=== PATIENT | male | born 1940 | race Hispanic/Latino ===

== ENCOUNTER → 2021-09-11 | Day surgery (SDC) | payer MEDICARE, OTHER ==
[~2021-09-11] MED LIST: ALBUTEROL0.63 MG/3 NEB; ALEVE220 M1 PO; AMLODIPINE BESY10 MG PO; ATROVENT HFA12.9 GM INH; BALANCED SALT SOLN (OPTH) 15 ML BTL IO ONE; BENICAR20 MG PO; BUPIVACAINE HC 0.75% PF 10ML VIAL INJ ONE; CALCIUM PO; CLONIDINE HCL0.1 MG PO; DICLOFENAC SODI50 MG PO; FENTANYL CITRATE/PF 100MCG/2 ML INJ ONE; FLOMAX0.4 MG PO; IRON PO; LIDOCAINE HCL 1% 30ML-PF VIAL ONE; MIDAZOLAM HCL 5 MG/ML VIAL ONE; NAPROSYN500 MG PO; NEOMYCIN/POLYMYXIN/DEX (OPTH) 3.5 GM TUBE ONE; OMEPRAZOLE40 MG PO; POVIDONE IODINE 5% (OPTH) 30 ML BTL ONE; ULTRAM 50MG50 MG PO; VITAMIN D3 PO; VITAMIN D310 MCG PO
[2021-09-11 16:40] VITALS: BP 136/71
== END | disposition home or self-care (01) ==
LOC: OR 11:54
PROVIDERS: ATTEND Ophthalmology
DX: H11.052 Peripheral pterygium, progressive, left eye (principal); D50.9 Iron deficiency anemia, unspecified; E11.65 Type 2 diabetes mellitus with hyperglycemia; E66.01 Morbid (severe) obesity due to excess calories; J44.9 Chronic obstructive pulmonary disease, unspecified; I10 Essential (primary) hypertension; M16.11 Unilateral primary osteoarthritis, right hip; N40.1 Benign prostatic hyperplasia with lower urinary tract symptoms; N32.81 Overactive bladder; K59.01 Slow transit constipation; E55.9 Vitamin D deficiency, unspecified; Z01.812 Encounter for preprocedural laboratory examination; Z20.822 Contact with and (suspected) exposure to COVID-19; Z79.899 Other long term (current) drug therapy; Z68.35 Body mass index [BMI] 35.0-35.9, adult; Z87.891 Personal history of nicotine dependence
CPT/HCPCS: 65426; 88304; U0002; 88305; J2001; J2250; J3010

== ENCOUNTER 2021-10-22 20:51 | Emergency (ER) | payer MEDICARE, OTHER ==
[~2021-10-22] VITALS: Ht 172.7 cm; Wt 111.1 kg
[~2021-10-22 20:51] MED LIST changes: -BALANCED SALT SOLN (OPTH) 15 ML BTL IO ONE; -BUPIVACAINE HC 0.75% PF 10ML VIAL INJ ONE; -FENTANYL CITRATE/PF 100MCG/2 ML INJ ONE; -LIDOCAINE HCL 1% 30ML-PF VIAL ONE; -MIDAZOLAM HCL 5 MG/ML VIAL ONE; -NEOMYCIN/POLYMYXIN/DEX (OPTH) 3.5 GM TUBE ONE; -POVIDONE IODINE 5% (OPTH) 30 ML BTL ONE
[2021-10-22] MEDS ORDERED: BACITRACIN ZINC 0.9GM TP ONE (21:15)
== END 2021-10-22 23:28 | disposition home or self-care (01) ==
LOC: ER 21:05
DX: S51.812A Laceration without foreign body of left forearm, initial encounter (principal); S51.811A Laceration without foreign body of right forearm, initial encounter; S61.412A Laceration without foreign body of left hand, initial encounter; S80.212A Abrasion, left knee, initial encounter; W01.0XXA Fall on same level from slipping, tripping and stumbling without subsequent striking against object, initial encounter; Y93.01 Activity, walking, marching and hiking; Y92.89 Other specified places as the place of occurrence of the external cause; I10 Essential (primary) hypertension
CPT/HCPCS: 99283